=== PATIENT | female | born 2000 | race Hispanic/Latino ===

== ENCOUNTER 2020-07-25 09:48 | Outpatient (CLI) | payer OTHER ==
[2020-07-25 20:03] LABS: SARS-CoV-2 PCR by NAA Not Detected (NotDetected)
== END 2020-07-25 09:49 | disposition home or self-care (01) ==
LOC: CSHLAB 09:48
PROVIDERS: ATTEND Student in an Organized Health Care Education/Training Program
DX: Z20.822 Contact with and (suspected) exposure to COVID-19 (principal)
CPT/HCPCS: 87635; U0003; U0005

== ENCOUNTER 2022-07-07 09:52 | Inpatient (IN) | payer MEDICAID, SELFPAY ==
[2022-07-07] MEDS ORDERED: hydrALAZINE 20 MG/ML VIAL SLOW IVP PRN ×2 (10:41→11:00)
[2022-07-07 10:49] LABS: Fetal Membranes Rupture RUPTURE DETECTED (No Rupture)
[2022-07-07] MEDS ORDERED: Lactated Ringer's 1,000 ML IV SCH (11:00)
[2022-07-07] MEDS ORDERED: Docusate 100 MG CAP PO PRN (11:00)
[2022-07-07] MEDS ORDERED: Acetaminophen 500 MG TAB PO PRN (11:00)
[2022-07-07] MEDS ORDERED: Penicillin G Potassium 5 MILL.UNITS in Sodium Chloride 0.9% 100 ML IVPB SCH (11:00)
[2022-07-07] MEDS ORDERED: Methylergonovine 0.2 MG/ML VIAL IM PRN (11:00)
[2022-07-07] MEDS ORDERED: Diphenoxylate HCl/Atropine Tablet PO PRN (11:00)
[2022-07-07] MEDS ORDERED: Ondansetron PF 4 MG/2 ML Vial IVP PRN (11:00)
[2022-07-07] MEDS ORDERED: Lidocaine 1% (PF) 30 ML VIAL SC PRN (11:00)
[2022-07-07] MEDS ORDERED: Penicillin G 2.5 MILL.units 2.5 MILL.UNITS in Premix Bag 1 BAG IVPB SCH (11:00)
[2022-07-07] MEDS ORDERED: Misoprostol 200 MCG TAB PR PRN (11:00)
[2022-07-07] MEDS ORDERED: Butorphanol Tartrate 1 MG/ML VIAL SLOW IVP PRN (11:00)
[2022-07-07] MEDS ORDERED: NS w/ Oxytocin 30 units 500 ML IV SCH ×2 (11:00)
[2022-07-07] MEDS ORDERED: Tranexamic Acid 1,000 MG in Sodium Chloride 0.9% 250 ML 250 ML IVPB PRN (11:00)
[2022-07-07] MEDS ORDERED: Promethazine HCl 25 MG/ML VIAL IM PRN (11:00)
[2022-07-07 11:17] VITALS: BMI 28.1
[2022-07-07 12:26] LABS: Hemoglobin 11.6 g/dL (12.0-15.5); Mean Corpuscular HGB CONC 34.2 g/dL (32.0-36.0); Mean Corpuscular Hemoglobin 30.4 pg (27.0-33.0); Mean Corpuscular Volume 88.7 fl (81.6-98.3); Mean Platelet Volume 10.7 fl (7.4-10.4); Platelet Count 279 10x3/uL (150-450); RBC Distribution Width 13.5 % (11.5-14.5); Red Blood Cell (RBC) Count 3.82 10x6/uL (3.90-5.03); White Blood Cell (WBC) Count 11.5 10x3/uL (3.5-10.5)
[2022-07-07 13:18] LABS: HBSAg Index 0.16 S/CO (0-0.99); Hep B Surf Ag Non-Reactive S/CO (NonReactive)
[2022-07-07 13:19] LABS: Syphilis Antibody Nonreactive (Nonreactive); Syphilis Antibody Index 0.03 S/CO (<1.00 Non-Reactive)
[2022-07-07 14:30] LABS: SARS-CoV-2 NAA Rapid Test Not Detected (NotDetected)
[2022-07-08] MEDS ORDERED: Boostrix 0.5 ML (Tdap) VIAL (>/=7 yrs of age) IM ONE (00:21)
[2022-07-08] MEDS ORDERED: Milk Of Magnesia 30 ML UDCUP PO PRN (00:21)
[2022-07-08] MEDS ORDERED: hydrALAZINE 20 MG/ML VIAL SLOW IVP PRN (00:21)
[2022-07-08] MEDS ORDERED: Bisacodyl 10 MG SUPP PR PRN (00:21)
[2022-07-08] MEDS ORDERED: Acetaminophen 500 MG TAB PO PRN (00:23)
[2022-07-08 05:26] LABS: Hemoglobin 10.9 g/dL (12.0-15.5); Mean Corpuscular Hemoglobin 30.4 pg (27.0-33.0); Mean Corpuscular Volume 89.4 fl (81.6-98.3); Platelet Count 278 10x3/uL (150-450); RBC Distribution Width 13.6 % (11.5-14.5); Red Blood Cell (RBC) Count 3.59 10x6/uL (3.90-5.03); White Blood Cell (WBC) Count 21.2 10x3/uL (3.5-10.5)
[2022-07-08] MEDS: Ibuprofen 800 MG TAB PO SCH ×3 (05:31→22:17)
[2022-07-08 06:03] LABS: MDiff Complete? YES
[2022-07-08 06:49] LABS: Band 6 % (5-11); Lymphocytes 17 % (21-51); Monocytes 4 % (0-10); Neutrophil 73 % (42-75)
[2022-07-08 06:50] LABS: Giant Platelets SLIGHT; Platelet Morphology Comment Appears Adequate
[2022-07-08 06:51] LABS: RBC Morphology Normal
[2022-07-08] MEDS: Docusate 100 MG CAP PO SCH ×2 (08:31→22:17)
[2022-07-08] MEDS: Ferrous Sulfate 325 MG TAB PO SCH (08:45)
[2022-07-08] MEDS ORDERED: Benzocaine-Menthol 82.5 ML CAN TOP PRN (12:58)
[2022-07-09] MEDS: Ibuprofen 800 MG TAB PO SCH ×3 (05:38→21:26)
[2022-07-09] MEDS: Ferrous Sulfate 325 MG TAB PO SCH ×2 (07:23→15:47)
[2022-07-09] MEDS ORDERED: Acetaminophen 325 MG TAB PO PRN (07:38)
[2022-07-09] MEDS: Docusate 100 MG CAP PO SCH ×2 (09:37→21:26)
[2022-07-10 08:04] VITALS: BP 111/59; TEMP 97.8
[2022-07-10] MEDS: Ibuprofen 800 MG TAB PO SCH (08:19)
[2022-07-10] MEDS: Ferrous Sulfate 325 MG TAB PO SCH (08:20)
[2022-07-10] MEDS: Docusate 100 MG CAP PO SCH (08:20)
== END 2022-07-10 14:40 | disposition home or self-care (01) | DRG 807 ==
LOC: CSHLD/OP 09:52 → CSHLD 16:18 → CSHPED 07-08 02:50
PROVIDERS: ADMIT Obstetrics & Gynecology; ATTEND Obstetrics & Gynecology
PROC: 10E0XZZ Delivery of Products of Conception, External Approach (ICD-10-PCS; principal; 2022-07-08)
PROC: 0KQM0ZZ Repair Perineum Muscle, Open Approach (ICD-10-PCS; 2022-07-08)
DX: O42.02 Full-term premature rupture of membranes, onset of labor within 24 hours of rupture (principal); Z37.0 Single live birth; Z20.822 Contact with and (suspected) exposure to COVID-19; O69.81X0 Labor and delivery complicated by cord around neck, without compression, not applicable or unspecified; O99.02 Anemia complicating childbirth; D64.9 Anemia, unspecified; O70.1 Second degree perineal laceration during delivery; Z91.013 Allergy to seafood; Z3A.38 38 weeks gestation of pregnancy; Z79.899 Other long term (current) drug therapy
CPT/HCPCS: 36415; 84112; 85025; 85027; 86780; 86850; 86900; 86901; 87340; 99285; J0595; J2590; U0002

== ENCOUNTER 2022-07-24 17:42 | Emergency (ER) | payer MEDICAID, SELFPAY ==
[2022-07-24] MEDS ORDERED: Ibuprofen 200 MG TAB ONE (18:38)
[2022-07-24 19:07] LABS: #Eosinphils 0.1 10x3/uL (0.0-0.5); #Monocytes 0.7 10x3/uL (0.0-1.1); #Neutrophils 12.5 10x3/uL (1.5-8.4); %Basophils 0.2 % (0.0-2.0); %Eosinophils 0.5 % (0.0-6.0); %Lymphocytes 10.3 % (18.0-47.0); %Monocytes 4.8 % (0.0-10.0); %Neutrophils 83.7 % (40.0-75.0); Hemoglobin 12.5 g/dL (12.0-15.5); Mean Corpuscular HGB CONC 33.9 g/dL (32.0-36.0); Mean Corpuscular Hemoglobin 30.1 pg (27.0-33.0); Mean Corpuscular Volume 88.9 fl (81.6-98.3); Mean Platelet Volume 9.9 fl (7.4-10.4); Platelet Count 301 10x3/uL (150-450); RBC Distribution Width 12.9 % (11.5-14.5); Red Blood Cell (RBC) Count 4.15 10x6/uL (3.90-5.03)
[2022-07-24 19:09] LABS: ALT (SGPT) 26 U/L (8-55); AST (SGOT) 27 U/L (5-34); Albumin 4.1 g/dL (3.5-5.0); Alkaline Phosphatase 85 U/L (40-110); Anion Gap 15 mmol/L (10-20); BUN (Urea Nitrogen) 9 mg/dL (7.0-18.7); Bilirubin, Total 0.6 mg/dL (0.2-1.2); Calc. Creatinine Clearance 0 mL/min (70-130); Calcium 9.4 mg/dL (7.8-10.44); Carbon Dioxide 23 mmol/L (22-29); Chloride 102 mmol/L (98-107); Estimated GFR 114; Globulin 3.8 g/dL (2.4-3.5); Glucose 97 mg/dL (70-105); Potassium 3.7 mmol/L (3.5-5.1); Protein, Total 7.9 g/dL (6.0-8.3); Sodium 136 mmol/L (136-145)
[2022-07-24] MEDS ORDERED: Acetaminophen 500 MG TAB ONE ×2 (19:41→19:43)
== END 2022-07-24 19:35 | disposition home or self-care (01) ==
LOC: CSHERS 17:42
DX: O91.22 Nonpurulent mastitis associated with the puerperium (principal)
CPT/HCPCS: 36415; 80053; 83605; 85025; 87040; 87149; 99283

== ENCOUNTER 2023-10-18 05:40 | Inpatient (IN) | payer MEDICAID ==
[2023-10-18] MEDS ORDERED: Butorphanol Tartrate 1 MG/ML VIAL SLOW IVP PRN (06:03)
[2023-10-18] MEDS ORDERED: Tranexamic Acid 1,000 MG/10 ML VIAL IVP PRN (06:03)
[2023-10-18] MEDS ORDERED: Misoprostol 200 MCG TAB PR PRN (06:03)
[2023-10-18] MEDS ORDERED: Ondansetron PF 4 MG/2 ML Vial IVP PRN ×2 (06:03→06:42)
[2023-10-18] MEDS ORDERED: Methylergonovine 0.2 MG/ML VIAL IM PRN ×2 (06:03→06:42)
[2023-10-18] MEDS ORDERED: Diphenoxylate HCl/Atropine Tablet PO PRN (06:03)
[2023-10-18] MEDS ORDERED: Promethazine HCl 25 MG/ML VIAL IM PRN ×2 (06:03→06:42)
[2023-10-18] MEDS ORDERED: hydrALAZINE 20 MG/ML VIAL SLOW IVP PRN ×3 (06:03→06:54)
[2023-10-18] MEDS ORDERED: Carboprost 250 MCG/ML AMP IM PRN (06:03)
[2023-10-18] MEDS ORDERED: fentaNYL 50 mcg/mL 1 mL Vial SLOW IVP PRN (06:03)
[2023-10-18] MEDS: Lactated Ringer's 1,000 ML IV SCH (06:05)
[2023-10-18] MEDS ORDERED: Oxytocin 30 units/NS 500 ML 500 ML IV SCH ×4 (06:15→06:45)
[2023-10-18 06:28] LABS: Hematocrit 38.3 % (34.9-44.5); Hemoglobin 13.1 g/dL (12.0-15.5); Mean Corpuscular HGB CONC 34.2 g/dL (32.0-36.0); Mean Corpuscular Hemoglobin 30.8 pg (27.0-33.0); Mean Corpuscular Volume 89.9 fL (81.6-98.3); Mean Platelet Volume 10.7 fL (7.4-10.4); Platelet Count 254 10x3/uL (150-450); Red Blood Cell (RBC) Count 4.26 10x6/uL (3.90-5.03); White Blood Cell (WBC) Count 12.8 10x3/uL (3.5-10.5)
[2023-10-18] MEDS: Lidocaine 1% (PF) 30 ML VIAL SC PRN (06:40)
[2023-10-18] MEDS: Oxytocin 30 units/NS 500 ML 500 ML ONE (06:40)
[2023-10-18] MEDS ORDERED: Boostrix 0.5 ML (Tdap) VIAL (>/=7 yrs of age) IM ONE (06:42)
[2023-10-18] MEDS ORDERED: Bisacodyl 10 MG SUPP PR PRN ×2 (06:42→06:54)
[2023-10-18] MEDS ORDERED: Preparation H Ointment 28 GM TUBE PR PRN (06:42)
[2023-10-18] MEDS ORDERED: diphenhydrAMINE 25 MG CAP PO PRN (06:42)
[2023-10-18] MEDS ORDERED: Milk Of Magnesia 30 ML UDCUP PO PRN ×2 (06:42→06:54)
[2023-10-18] MEDS ORDERED: Misoprostol 200 MCG TAB VAG PRN (06:42)
[2023-10-18 06:56] LABS: Syphilis Antibody Nonreactive (Nonreactive); Syphilis Antibody Index 0.06 S/CO (<1.00 Non-Reactive)
[2023-10-18 06:57] LABS: HBsAg Index 0.24 S/CO (0-0.99); Hep B Surf Ag - L&D Non-Reactive S/CO (NonReactive)
[2023-10-18 07:08] VITALS: BMI 27.4
[2023-10-18] MEDS: Ibuprofen 800 MG TAB PO PRN (07:10)
[2023-10-18] MEDS: Acetaminophen 500 MG TAB PO PRN (07:10)
[2023-10-18] MEDS ORDERED: Ferrous Sulfate 325 MG TAB PO SCH (08:00)
[2023-10-18] MEDS ORDERED: Docusate 100 MG CAP PO SCH (09:00)
[2023-10-18] MEDS: Ferrous Sulfate 325 MG TAB PO SCH (10:12)
[2023-10-18] MEDS: Benzocaine-Menthol 82.5 ML CAN TOP PRN (10:39)
[2023-10-18] MEDS: Prenatal Vitamin 1 TAB PO SCH (10:39)
[2023-10-18] MEDS: Docusate 100 MG CAP PO SCH (10:39)
[2023-10-18] MEDS: Ibuprofen 800 MG TAB PO SCH (14:27)
[2023-10-19 04:18] LABS: #Basophils 0.06 10x3/uL (0.0-0.2); #Eosinphils 0.09 10x3/uL (0.0-0.5); #Monocytes 0.77 10x3/uL (0.0-1.1); #Neutrophils 9.96 10x3/uL (1.5-8.4); %Basophils 0.4 % (0.0-2.0); %Eosinophils 0.6 % (0.0-6.0); %Monocytes 5.1 % (0.0-10.0); %Neutrophils 66.4 % (40.0-75.0); Hematocrit 31.9 % (34.9-44.5); Hemoglobin 10.8 g/dL (12.0-15.5); Mean Corpuscular HGB CONC 33.9 g/dL (32.0-36.0); Mean Corpuscular Hemoglobin 30.7 pg (27.0-33.0); Mean Corpuscular Volume 90.6 fL (81.6-98.3); Mean Platelet Volume 11.3 fL (7.4-10.4); Platelet Count 200 10x3/uL (150-450); RBC Distribution Width 14.1 % (11.5-14.5); Red Blood Cell (RBC) Count 3.52 10x6/uL (3.90-5.03)
[2023-10-19 04:52] VITALS: TEMP 97.7
[2023-10-19 08:32] VITALS: BP 104/57
== END 2023-10-19 17:05 | disposition home or self-care (01) | DRG 807 ==
LOC: CSHLD/OP 05:40 → CSHLD 06:15 → CSHPED 09:40
PROVIDERS: ADMIT Obstetrics & Gynecology; ATTEND Obstetrics & Gynecology
PROC: 10E0XZZ Delivery of Products of Conception, External Approach (ICD-10-PCS; principal; 2023-10-18)
PROC: 0HQ9XZZ Repair Perineum Skin, External Approach (ICD-10-PCS; 2023-10-18)
DX: O62.3 Precipitate labor (principal); Z37.0 Single live birth; O43.113 Circumvallate placenta, third trimester; Z91.013 Allergy to seafood; Z79.899 Other long term (current) drug therapy; Z79.1 Long term (current) use of non-steroidal anti-inflammatories (NSAID); Z3A.39 39 weeks gestation of pregnancy; O99.02 Anemia complicating childbirth; D64.9 Anemia, unspecified; O70.0 First degree perineal laceration during delivery
CPT/HCPCS: 85025; 85027; 86780; 86850; 86900; 86901; 87340; 99285; J2001; J2590; J7120